=== PATIENT | male | born 1945 | race Caucasian/White ===

== ENCOUNTER 2017-01-02 22:51 | Emergency (ER) | payer OTHER ==
--- NOTE | 2017-01-03 02:16 | ED NURSING NOTES ---
Clinical Report - Nurses [facility] [address] [place] [address] 01/02/2017 22:52 Patient: TIERRA PEOPLES TRIAGE Triage time 23:06. Acuity: LEVEL 3. Chief Complaint: HEMATURIA. --23:12 Everton Jalloh R.N. 23:06 01/02/17. BP: 157/68. HR: 116. RR: 28 (regular and labored). O2 saturation: 88% on room air. Temp: 98.4 F (oral). Pain level now: 05/27. Additional comments: pt states having chronic shoulder pain. irregular rhythm on international marketing executive. --23:12 Everton Jalloh R.N. <<STRICKEN ENTRY-- 23:01/02/17. BP: 157/68. HR: 116. RR: 28 (regular and labored). O2 saturation: 88% on room air. Temp: 98.4 F (oral). Pain level now: 10. Additional comments: pt states having chronic shoulder pain. --23:12 Everton Jalloh R.N. --END STRIKE>> Change to Details. --02:05 Everton Jalloh R.N. Weight: 97.5 kg stated. Height/Length: 74 inches Per Patient. BMI: 27.6. --23:10 Everton Jalloh R.N. Medications Unable to Obtain. --23:07 Everton Jalloh R.N. PROzac Oral. --23:07 Everton Jalloh R.N. Allergies No Known Drug Allergy. --23:07 Everton Jalloh R.N. History Arrived by private vehicle. Historian: spouse and patient. Accompanied by spouse. This started yesterday. ( pt states that he had blood in his urine "last night. and it cleared up"). SOCIAL HX: Former smoker. No alcohol use or drug use. SELF HARM ASSESSMENT: A self harm assessment was performed. The patient answered "no" to the question "Have you noticed less interest or pleasure in doing things?" and "Do you have thoughts of harming or killing yourself?". NUTRITIONAL RISK ASSESSMENT: The nutritional risk assessment revealed no deficiencies. LEARNING NEEDS ASSESSMENT: The learning needs assessment revealed no barriers. FALL RISK ASSESSMENT: Fall risk assessment completed. Risk factors identified include patient impairment of cognition. --23:12 Everton Jalloh R.N. PROBLEMS: Emphysema. Leukemia. Dementia. UTI - Urinary Tract Infection. --23:09 Everton Jalloh R.N. ADDITIONAL SURGERIES: Appendectomy. Cataract Surgery. Shoulder Surgery. --23:09 Everton Jalloh R.N. Interventions ID band on patient. To treatment room. --23:12 Everton Jalloh R.N. PHYSICAL ASSESSMENT ( Patient placed on 4 L oxygen). GENERAL / NEURO / PSYCH: Alert. RESPIRATORY: Mild respiratory distress. Coarse crackles present diffusely in both lungs. CVS: Cardiac rhythm: (irregular rhythm). Capillary refill less than 2 seconds. GI / : Abdomen soft and nontender. SKIN: Skin is warm and dry. --23:16 Everton Jalloh R.N. Ambulatory to room. --23:16 Everton Jalloh R.N. <<STRICKEN ENTRY-- GENERAL / NEURO / PSYCH: The patient is disoriented to person, place, time and situation. --02:15 Everton Jalloh R.N. --END STRIKE>> Charted On Wrong Patient --02:15 Everton Jalloh R.N. GENERAL / NEURO / PSYCH: Oriented X 4. ( Oriented to time place, person, and situation). --02:15 Everton Jalloh R.N. NURSING PROGRESS NOTES Oxygen administered. unclaimed property manager, pulse oximeter and NIBP monitor placed on patient. Patient gowned. Head of bed elevated. Reassurance given. Two patient identifiers checked. Call light placed in reach. Side rails up x 1. Bed placed in lowest position. Brakes of bed on. Patient ready for evaluation- chart flagged. Patient waiting for evaluation. --23:17 Everton Jalloh R.N. ( of patient at bedside). --23:29 Everton Jalloh R.N. ( RT called and RT eval requested). --23:59 Everton Jalloh R.N. EKG time: (0003). EKG was ordered, performed by a tech and shown to the ED physician. --00:04 Eliu Davis, ER Financial Systems Manager 00:20 01/03/2017 Site #1 started via IV in the left forearm with an 20g angiocath, with aseptic technique and good blood return; one attempt. Blood drawn: rainbow set. Labeled in the presence of the patient and sent to the lab. Saline lock flushed with 10 mL saline. --00:28 Everton Jalloh R.N. 00:50 01/03/2017 SOLU-MEDROL (MethylPREDNISolone Sodium Succ) IVP 125 mg given over 2 minute(s) via site #1. Allergies verified and confirmed 5 rights. IV patency established. IV site checked: no pain, redness, or swelling. IV flushed thoroughly pre- and post-medication administration. IVP given by RN. --00:53 Everton Jalloh R.N. 00:51 01/03/17. Critical value relayed to ED by Christ. Critical value received by Carolynn. WBC: 28.7. ED physician notifed of critical value. No action is required. --00:51 Ashley Potts R.N. ( Patient's states that the patient does not use oxygen at home, and states that he uses a home nebulizer.). --01:27 Everton Jalloh R.N. ( The of the patient is in the room with the patient now. Patient states "I want to go home! I'm leaving right now" The of the patient is discussing it with him.). --01:44 Everton Jalloh R.N. ( Dr. Galvin notified of the patient's intentions.). --01:44 Everton Jalloh R.N. ( THe bathhouse attendant is ascertaining if the patient can be set up with home oxygen.). --01:45 Everton Jalloh R.N. ( The physician and the bathhouse attendant are in speaking with the patient and his together.). --01:53 Everton Jalloh R.N. 02:18 01/03/2017 Site #1 removed upon discharge. Manual pressure and bandage applied. --02:53 Everton Jalloh R.N. DISPOSITION / DISCHARGE 02:20. Departure time: 0220. Condition at departure: stable. No learning barriers present. Discharge instructions provided and reviewed with the patient. Reviewed warnings. Reviewed medication(s) side effects, precautions, dosing and course information. Prescription(s) given to the summer clerk. Treatments reviewed. Reviewed referrals for followup. Patient and spouse verbalized understanding. Written instructions provided in Sri Lankan. The patient was discharged home and accompanied by spouse. He left the Emergency Department ambulatory and via private vehicle. Patient driving. ( Spouse of patent ("Haley") states "He can drive."). --02:51 Everton Jalloh R.N. 02:20 01/03/17. BP: 157/91. HR: 102. RR: 28 (regular and labored). O2 saturation: 94% on nasal cannula at 2 liters/minute. --02:51 Everton Jalloh R.N. ( 0220: RT provided the patient with an oxygen tank and gave instructions on use. of patient and patient states understanding how to use home oxygen, and state that they will call [facility] in the morning to establish continued home oxygen service/use.). --02:52 Everton Jalloh R.N. Locked/Released at 01/03/2017 2:55 by Everton Jalloh R.N.
--- NOTE | 2017-01-03 02:16 | ED ORDER SUMMARY ---
..... Patient: TIERRA PEOPLES OrderSheet [facility] VisitID: [id number] [place] [address] 71y, M Registration Date/Time: 01/02/2017 ORDER SHEET Weight: 97.5 kg (stated) Allergies: No Known Drug Allergy GENERAL ORDERS: UA-Culture if indicated Urgent (23:16 01/02/2017 Gino ACOSTA) (Ack 23:22 CHategekimana) (23:29 DDavis R.N.) EKG - ER Stat (23:54 01/02/2017 DDavis R.N. per protocol) (0:04 Simona ER Dehydration Plant Operator) RT Evaluation Stat (00:00 01/03/2017 DDavis R.N. verbal order read back to Gino ACOSTA) (0:16 CHategekimana) Chest 1V Urgent (00:03 01/03/2017 Gino ACOSTA) (Ack 0:18 Brandiekimana) (0:20 Samson) Honing Machine Operator Semiautomatic (Continuous) (00:03 01/03/2017 Gino ACOSTA) (0:07 DDavis R.N.) CBC w Diff Urgent (00:03 01/03/2017 Gino ACOSTA) (Ack 0:17 Brandiekimana) (0:28 DDavis R.N.) CMP Urgent (00:03 01/03/2017 Gino ACOSTA) (Ack 0:17 Jethroimana) (0:28 DDavis R.N.) PT with INR Urgent (00:03 01/03/2017 Gino ACOSTA) (Ack 0:17 Brandiekimana) (0:28 DDavis R.N.) PTT Urgent (00:03 01/03/2017 Gino ACOSTA) (Ack 0:18 Jose Danielegekimana) (0:28 DDavis R.N.) Amylase Urgent (00:03 01/03/2017 Gino ACOSTA) (Ack 0:18 Jose Danielegekimana) (0:28 DDavis R.N.) Lipase Urgent (00:03 01/03/2017 Gino ACOSTA) (Ack 0:18 Jenny) (0:28 DDavis R.N.) BNP Urgent (00:03 01/03/2017 Gino ACOSTA) (Ack 0:18 Jenny) (0:28 DDavis R.N.) CPK Urgent (00:03 01/03/2017 Gino ACOSTA) (Ack 0:18 Jethroimana) (0:28 DDavis R.N.) Troponin-I Urgent (00:03 01/03/2017 Gino ACOSTA) (Ack 0:18 Jenny) (0:28 DDavis R.N.) D-Dimer Urgent (00:03 01/03/2017 Gino ACOSTA) (Ack 0:18 Jenny) (0:28 DDavis R.N.) Oxygen (2 L/min) (NC) (00:03 01/03/2017 Gino ACOSTA) (0:07 DDavis R.N.) Pulse oximeter (00:03 01/03/2017 Gino ACOSTA) (0:07 DDavis R.N.) EKG - ER Stat (00:03 01/03/2017 Gino ACOSTA) (Cancelled: Other0:05 Gino ACOSTA) UA-Culture if indicated Urgent (00:11 01/03/2017 DDavis R.N. verbal order read back to Gino ACOSTA) (0:11 DDavis R.N.) CBC w Manual Diff Urgent (00:56 01/03/2017 Gino ACOSTA) (Cancelled: Other0:58 CHaged ER Dehydration Plant Operator) (Ack 0:59 Brandiekimana) MEDICATION ORDERS: DuoNeb Neb Tx 1 unit dose (NOW) (00:45 01/03/2017 DDavis R.N. verbal order read back to Gino ACOSTA) (0:48 ASingh) IV FLUIDS: IV Saline Lock (00:03 01/03/2017 Gino ACOSTA) (0:28 DDavis R.N.) Solu-MEDROL IV 125 mg (NOW) (00:30 01/03/2017 Gino ACOSTA) (Ack 0:45 DDavis R.N.) (0:53 DDavis R.N.) ORDER SHEET NOTES: [Electronically signed by Everton Jalloh R.N. (02:55 01/03/2017)] [Electronically signed by Froilan Galvin MD (04:17 01/10/2017)] [Electronically locked/signed by Everton Jalloh R.N. (02:55 01/03/2017)]
--- NOTE | 2017-01-03 02:16 | ED CLINICAL REPORT ---
Clinical Report - Physicians/Mid Levels [facility] [address] [place] [address] 01/02/2017 22:52 Patient: TIERRA PEOPLES Time Seen: 23:01. Arrived- By private vehicle. Historian- patient. History limited by vague historian. HISTORY OF PRESENT ILLNESS Chief Complaint: HEMATURIA. This started last night. The problem is described as mild. Is now gone. It was abrupt in onset and has been intermittent. No penile discharge, discomfort with urination, testicular pain, urgency of urination or flank pain. Sexual history is noncontributory. REVIEW OF SYSTEMS No chills, fever, sweats, calf pain or chest pain. No palpitations. He has had moderate difficulty breathing (chronically, recently worse). It has been similar to previous symptoms. He has had moderate joint pain (chronically), involving the right shoulder. Has had similar previous symptoms of joint pain. All systems otherwise negative, except as recorded above. PAST HISTORY ( PCP - GOLD LEMON). Problems: Emphysema. Leukemia. Dementia. UTI - Urinary Tract Infection. Additional Surgeries: Appendectomy. Cataract Surgery. Shoulder Surgery. Medications: PROzac Oral. Unable to Obtain. Allergies: No Known Drug Allergy. SOCIAL HISTORY Former smoker. No alcohol use or drug use. FAMILY HISTORY Denies family medical history. ADDITIONAL NOTES The nursing notes have been reviewed. PHYSICAL EXAM Vital Signs: 01/02/2017 23:06 BP: 157/68. HR: 116. RR: 28. O2 saturation: 88%. Temp: 98.4 F. Pain level now: 9/10. Have been reviewed. Appearance: Alert. ENT: Pharynx normal. Neck: Neck supple. CVS: Heart sounds normal. Respiratory: No respiratory distress. Decreased air movement. Expiratory mild bilateral wheezes diffusely. Abdomen: Soft and nontender. Bowel sounds normal. No organomegaly. No mass. Back: No CVA tenderness. : Normal genitalia. Skin: Skin warm and dry. Normal skin color. Normal skin turgor. Extremities: Right shoulder. Limited ROM due to pain (diminished flexion and external rotation). Neurovascular intact distally. No erythema, tenderness or swelling. No lower extremity edema. LABS, X-RAYS, AND EKG EKG: Rate: 108. Ectopic beats (bigeminy). Premature atrial contractions. Left anterior fascicular block. RBBB. Changes present when compared to prior EKG. (10 Oct 2008). The study has been independently viewed by me. Chest X-ray: Vascular congestion present. Cardiomegaly. The X-rays were independently viewed by me. Laboratory Tests: UA-Culture if indicated: (SHANNON: 01/03/2017 00:04) ( MsgRcvd 01/03/2017 00:35) Final results Test Result Flag Units (Reference) URINE COLOR YELLOW URINE APPEARANCE SL CLOUDY URINE GLUCOSE NEGATIVE (NEGATIVE) URINE BILIRUBIN NEGATIVE (NEGATIVE) URINE KETONE TRACE (NEGATIVE) URINE SPECIFIC GRAVITY >= 1.030 (1.010-1.030) URINE PH 5.0 (5.0-8.0) URINE PROTEIN 2+ (NEGATIVE) URINE UROBILINOGEN 0.2 EU/dL (0.2-1.0) URINE NITRITE NEGATIVE (NEGATIVE) URINE BLOOD 2+ (NEGATIVE) URINE LEUK ESTERASE NEGATIVE (NEGATIVE) URINE RBC 0-1 rbc/hpf (0-1) URINE WBC 1-3 wbc/hpf (0-1) URINE EPITHELIAL CELLS 0-1 EPI/hpf (0-5) URINE BACTERIA NONE SEEN (NONE SEEN) URINE COMMENT CULT NOT INDICATED 3-5 Granular Casts/l.p.f.1+ AMORPHOUS3 m.l. patient sample submittedURINE CULTURES ARE SET-UP BASED ON THE FOLLOWING CRITERIA:POSITIVE NITRITEPOSITIVE LEUKOCYTE ESTERASEGREATER THAN 10 WHITE BLOOD CELLSMODERATE (2+) OR GREATER BACTERIA CBC w Diff: (SHANNON: 01/03/2017 00:20) ( MsgRcvd 01/03/2017 00:53) IP Test Result Flag Units (Reference) WHITE BLOOD COUNT 28.7 *H K/uL (4.5-11.5) CRITICAL RESULTS CALLEDCalled to Supriya JEAN 01/03/17 0051Were 2 patient identifiers used? YWas the result read back? Y RED BLOOD COUNT 4.45 L M/uL (4.50-5.90) HEMOGLOBIN 12.3 L gm/dL (13.5-17.5) HEMATOCRIT 37.5 L % (41.0-53.0) MEAN CELL VOLUME 84 fL (80-100) MEAN CORPUSCULAR HGB 28 pg (26-34) MEAN CORPUSCULAR HGB CONC 33 g/dL (31-37) RED CELL DISTRIBUTION WIDTH 15.8 H % (11.6-14.8) PLATELET COUNT 258 K/uL (150-400) PT with INR: (SHANNON: 01/03/2017 00:20) ( [facility] 01/03/2017 01:01) Final results Test Result Flag Units (Reference) INR 1.0 (0.8-1.2) Low Intensity Therapy: INR 1.5-2.0 PT range 18.5-23.1Mod.Intensity Therapy: INR 2.0-3.0 PT range 23.1-31.5High Intensity Therapy: INR 2.5-3.5 PT range 27.4-35.5High Intensity Therapy 2: INR 3.0-4.0 PT range 31.5-39.3 APTT 27 SECONDS (24-34) D-DIMER QUANTITATIVE 0.39 ug/mLFEU (0.27-0.52) The primary value of this quantitative assay relates toits negative predictive value (i.e. exclusion) of pulmonaryembolism/deep vein thrombosis/DIC.Elevated levels of d-dimer may also occur with:, age, cancer, inflammation, liver disease,post-op, infection, hematoma, coronary disease, peripheralarteriopathy, bleeding disorders and thrombolytic treatment.Results should be correlated with other clinical andradiological data.Testing Methodology: Latex Immunoassay BNP: (SHANNON: 01/03/2017 00:20) ( [facility] [place] 01/03/2017 01:14) Final results Test Result Flag Units (Reference) B-TYPE NATRIURETIC PEPTIDE 19.3 pg/ml (5-100) CMP: (SHANNON: 01/03/2017 00:20) ( Mscvd 01/03/2017 01:04) Final results Test Result Flag Units (Reference) GLUCOSE 158 H mg/dL (70-110) BUN 38 H mg/dL (7-18) CREATININE 3.2 H mg/dL (0.6-1.3) Estimated GFR 20.51 mL/min Estimated GFR- 24.86 mL/min Note: Persistent reduction over 3 months in eGFR<60 mL/min/1.73 m2 defines CKD. Patients with eGFR values>=60 mL/min/1.73 m2 may also have CKD if evidence ofpersistent proteinuria. Additional information may be foundat www.kidney.org. SODIUM 138 mmol/L (136-145) POTASSIUM 3.3 L mmol/L (3.5-5.1) CHLORIDE 101 mmol/L (98-107) CARBON DIOXIDE 30 mmol/L (21-32) CALCIUM 9.0 mg/dL (8.5-10.1) TOTAL PROTEIN 9.3 H g/dL (6.4-8.2) ALBUMIN 3.5 g/dL (3.3-5.0) BILIRUBIN, TOTAL 0.4 mg/dL (0.0-1.0) ALKALINE PHOSPHATASE 138 H U/L (46-116) AST (SGOT) 30 U/L (15-37) ALT (SGPT) 33 U/L (12-78) LIPASE 202 U/L (73-393) AMYLASE 163 H U/L (25-115) CPK 237 U/L (24-260) TROPONIN I 0.08 ng/mL (0.00-1.5) TROPONIN REFERENCE RANGE:<0.1 NEGATIVE0.1-1.5 INDETERMINANT>1.5 POSITIVE UA-Culture if indicated: (SHANNON: 01/02/2017 23:20) ( MsgRcvd 01/02/2017 23:53) Final results Test Result Flag Units (Reference) URINE COLOR YELLOW URINE APPEARANCE CLOUDY URINE GLUCOSE NEGATIVE (NEGATIVE) URINE BILIRUBIN NEGATIVE (NEGATIVE) URINE KETONE TRACE (NEGATIVE) URINE SPECIFIC GRAVITY >= 1.030 (1.010-1.030) URINE PH 5.0 (5.0-8.0) URINE PROTEIN 2+ (NEGATIVE) URINE UROBILINOGEN 0.2 EU/dL (0.2-1.0) URINE NITRITE NEGATIVE (NEGATIVE) URINE BLOOD 3+ (NEGATIVE) URINE LEUK ESTERASE NEGATIVE (NEGATIVE) URINE RBC 0-1 rbc/hpf (0-1) URINE MICROSCOPIC WAS PERFORMED ON UNCONCENTRATED SAMPLEINTERPRET RESULTS WITH CAUTION.GRANULAR CAST= 5-10/LPF URINE WBC 3-5 wbc/hpf (0-1) URINE EPITHELIAL CELLS 1-3 EPI/hpf (0-5) URINE BACTERIA FEW (1+) (NONE SEEN) URINE COMMENT CULT NOT INDICATED URINE CULTURES ARE SET-UP BASED ON THE FOLLOWING CRITERIA:POSITIVE NITRITEPOSITIVE LEUKOCYTE ESTERASEGREATER THAN 10 WHITE BLOOD CELLSMODERATE (2+) OR GREATER BACTERIA . PROGRESS AND PROCEDURES Course of Care: Patient is stable. Patient/family counseled. Old medical records reviewed. Disposition: Discharged. Condition: stable. CLINICAL IMPRESSION Leukemia. Hematuria Chronic upper extremity pain involving the right shoulder. Acute exacerbation of COPD (emphysematous) Hypoxia. INSTRUCTIONS No driving or operating machinery while taking medication. (please call [facility] when you get home at: [phone] they will come to your home to continue the arrangements for your home oxygen set up as discussed. Continue the use of your home nebulizer and inhalers as discussed). Warnings: Further evaluation is necessary. GENERAL WARNINGS: Return or contact your physician immediately if your condition worsens or changes unexpectedly, if not improving as expected, or if other problems arise. Prescription Medications: Ultram 50 mg: take 1-2 orally every 6 hours as needed for pain. Dispense ten (10). No refills. Substitution is permissible. Follow-up: Follow up with your doctor GOLD LEMON tomorrow. Call for an appointment. Follow up with a urologist Dr. Jose Estrada 's phone number is: [phone]. his address is: [address] [place] [address] in five days. Call for the next available appointment. Understanding of the discharge instructions verbalized by patient. (Electronically signed by Froilan Galvin MD 01/10/2017 4:17)
--- NOTE | 2017-01-03 02:16 | ED NURSING NOTES ---
Clinical Report - Nurses [facility] [address] [place] [address] 01/02/2017 22:52 Patient: TIERRA PEOPLES TRIAGE Triage time 23:06. Acuity: LEVEL 3. Chief Complaint: HEMATURIA. --23:12 Everton Jalloh R.N. 23:06 01/02/17. BP: 157/68. HR: 116. RR: 28 (regular and labored). O2 saturation: 88% on room air. Temp: 98.4 F (oral). Pain level now: 05/27. Additional comments: pt states having chronic shoulder pain. irregular rhythm on monitoring engineer. --23:12 Everton Jalloh R.N. <<STRICKEN ENTRY-- 23:01/02/17. BP: 157/68. HR: 116. RR: 28 (regular and labored). O2 saturation: 88% on room air. Temp: 98.4 F (oral). Pain level now: 10. Additional comments: pt states having chronic shoulder pain. --23:12 Everton Jalloh R.N. --END STRIKE>> Change to Details. --02:05 Everton Jalloh R.N. Weight: 97.5 kg stated. Height/Length: 74 inches Per Patient. BMI: 27.6. --23:10 Everton Jalloh R.N. Medications Unable to Obtain. --23:07 Everton Jalloh R.N. PROzac Oral. --23:07 Everton Jalloh R.N. Allergies No Known Drug Allergy. --23:07 Everton Jalloh R.N. History Arrived by private vehicle. Historian: spouse and patient. Accompanied by spouse. This started yesterday. ( pt states that he had blood in his urine "last night. and it cleared up"). SOCIAL HX: Former smoker. No alcohol use or drug use. SELF HARM ASSESSMENT: A self harm assessment was performed. The patient answered "no" to the question "Have you noticed less interest or pleasure in doing things?" and "Do you have thoughts of harming or killing yourself?". NUTRITIONAL RISK ASSESSMENT: The nutritional risk assessment revealed no deficiencies. LEARNING NEEDS ASSESSMENT: The learning needs assessment revealed no barriers. FALL RISK ASSESSMENT: Fall risk assessment completed. Risk factors identified include patient impairment of cognition. --23:12 Everton Jalloh R.N. PROBLEMS: Emphysema. Leukemia. Dementia. UTI - Urinary Tract Infection. --23:09 Everton Jalloh R.N. ADDITIONAL SURGERIES: Appendectomy. Cataract Surgery. Shoulder Surgery. --23:09 Everton Jalloh R.N. Interventions ID band on patient. To treatment room. --23:12 Everton Jalloh R.N. PHYSICAL ASSESSMENT ( Patient placed on 4 L oxygen). GENERAL / NEURO / PSYCH: Alert. RESPIRATORY: Mild respiratory distress. Coarse crackles present diffusely in both lungs. CVS: Cardiac rhythm: (irregular rhythm). Capillary refill less than 2 seconds. GI / : Abdomen soft and nontender. SKIN: Skin is warm and dry. --23:16 Everton Jalloh R.N. Ambulatory to room. --23:16 Everton Jalloh R.N. <<STRICKEN ENTRY-- GENERAL / NEURO / PSYCH: The patient is disoriented to person, place, time and situation. --02:15 Everton Jalloh R.N. --END STRIKE>> Charted On Wrong Patient --02:15 Everton Jalloh R.N. GENERAL / NEURO / PSYCH: Oriented X 4. ( Oriented to time place, person, and situation). --02:15 Everton Jalloh R.N. NURSING PROGRESS NOTES Oxygen administered. lunchroom monitor, pulse oximeter and NIBP monitor placed on patient. Patient gowned. Head of bed elevated. Reassurance given. Two patient identifiers checked. Call light placed in reach. Side rails up x 1. Bed placed in lowest position. Brakes of bed on. Patient ready for evaluation- chart flagged. Patient waiting for evaluation. --23:17 Everton Jalloh R.N. ( of patient at bedside). --23:29 Everton Jalloh R.N. ( RT called and RT eval requested). --23:59 Everton Jalloh R.N. EKG time: (0003). EKG was ordered, performed by a tech and shown to the ED physician. --00:04 Eliu Davis, ER Hospice Clinical Marketer 00:20 01/03/2017 Site #1 started via IV in the left forearm with an 20g angiocath, with aseptic technique and good blood return; one attempt. Blood drawn: rainbow set. Labeled in the presence of the patient and sent to the lab. Saline lock flushed with 10 mL saline. --00:28 Everton Jalloh R.N. 00:50 01/03/2017 SOLU-MEDROL (MethylPREDNISolone Sodium Succ) IVP 125 mg given over 2 minute(s) via site #1. Allergies verified and confirmed 5 rights. IV patency established. IV site checked: no pain, redness, or swelling. IV flushed thoroughly pre- and post-medication administration. IVP given by RN. --00:53 Everton Jalloh R.N. 00:51 01/03/17. Critical value relayed to ED by Christ. Critical value received by Carolynn. WBC: 28.7. ED physician notifed of critical value. No action is required. --00:51 Ashley Potts R.N. ( Patient's states that the patient does not use oxygen at home, and states that he uses a home nebulizer.). --01:27 Everton Jalloh R.N. ( The of the patient is in the room with the patient now. Patient states "I want to go home! I'm leaving right now" The of the patient is discussing it with him.). --01:44 Everton Jalloh R.N. ( Dr. Galvin notified of the patient's intentions.). --01:44 Everton Jalloh R.N. ( THe housekeeping/laundry is ascertaining if the patient can be set up with home oxygen.). --01:45 Everton Jalloh R.N. ( The physician and the housekeeping/laundry are in speaking with the patient and his together.). --01:53 Everton Jalloh R.N. 02:18 01/03/2017 Site #1 removed upon discharge. Manual pressure and bandage applied. --02:53 Everton Jalloh R.N. DISPOSITION / DISCHARGE 02:20. Departure time: 0220. Condition at departure: stable. No learning barriers present. Discharge instructions provided and reviewed with the patient. Reviewed warnings. Reviewed medication(s) side effects, precautions, dosing and course information. Prescription(s) given to the associate justice. Treatments reviewed. Reviewed referrals for followup. Patient and spouse verbalized understanding. Written instructions provided in Bulgarian. The patient was discharged home and accompanied by spouse. He left the Emergency Department ambulatory and via private vehicle. Patient driving. ( Spouse of patent ("Haley") states "He can drive."). --02:51 Everton Jalloh R.N. 02:20 01/03/17. BP: 157/91. HR: 102. RR: 28 (regular and labored). O2 saturation: 94% on nasal cannula at 2 liters/minute. --02:51 Everotn Jalloh R.N. ( 0220: RT provided the patient with an oxygen tank and gave instructions on use. of patient and patient states understanding how to use home oxygen, and state that they will call [facility] in the morning to establish continued home oxygen service/use.). --02:52 Everton Jalloh R.N. Locked/Released at 01/03/2017 2:55 by Everton Jalloh R.N.
--- NOTE | 2017-01-03 02:16 | ED ORDER SUMMARY ---
..... Patient: TIERRA PEOPLES OrderSheet [facility] VisitID: [id number] [place] [address] 71y, M Registration Date/Time: 01/02/2017 ORDER SHEET Weight: 97.5 kg (stated) Allergies: No Known Drug Allergy GENERAL ORDERS: UA-Culture if indicated Urgent (23:16 01/02/2017 Gino ACOSTA) (Ack 23:22 CHategekimana) (23:29 DDavis R.N.) EKG - ER Stat (23:54 01/02/2017 DDavis R.N. per protocol) (0:04 Simona ER Music Researcher) RT Evaluation Stat (00:00 01/03/2017 DDavis R.N. verbal order read back to Gino ACOSTA) (0:16 CHategekimana) Chest 1V Urgent (00:03 01/03/2017 Gino ACOSTA) (Ack 0:18 Brandiekimana) (0:20 Samson) Hand Alterations Tailor (Continuous) (00:03 01/03/2017 Gino ACOSTA) (0:07 DDavis R.N.) CBC w Diff Urgent (00:03 01/03/2017 Gino ACOSTA) (Ack 0:17 Brandiekimana) (0:28 DDavis R.N.) CMP Urgent (00:03 01/03/2017 Gino ACOSTA) (Ack 0:17 Jethroimana) (0:28 DDavis R.N.) PT with INR Urgent (00:03 01/03/2017 Gino ACOSTA) (Ack 0:17 Brandiekimana) (0:28 DDavis R.N.) PTT Urgent (00:03 01/03/2017 Gino ACOSTA) (Ack 0:18 Jose Danielegekimana) (0:28 DDavis R.N.) Amylase Urgent (00:03 01/03/2017 Gino ACOSTA) (Ack 0:18 Jose Danielegekimana) (0:28 DDavis R.N.) Lipase Urgent (00:03 01/03/2017 Gino ACOSTA) (Ack 0:18 Jenny) (0:28 DDavis R.N.) BNP Urgent (00:03 01/03/2017 Gino ACOSTA) (Ack 0:18 Jenny) (0:28 DDavis R.N.) CPK Urgent (00:03 01/03/2017 Gino ACOSTA) (Ack 0:18 Jethroimana) (0:28 DDavis R.N.) Troponin-I Urgent (00:03 01/03/2017 Gino ACOSTA) (Ack 0:18 Jenny) (0:28 DDavis R.N.) D-Dimer Urgent (00:03 01/03/2017 Gino ACOSTA) (Ack 0:18 Jenny) (0:28 DDavis R.N.) Oxygen (2 L/min) (NC) (00:03 01/03/2017 Gino ACOSTA) (0:07 DDavis R.N.) Pulse oximeter (00:03 01/03/2017 Gino ACOSTA) (0:07 DDavis R.N.) EKG - ER Stat (00:03 01/03/2017 Gino ACOSTA) (Cancelled: Other0:05 Gino ACOSTA) UA-Culture if indicated Urgent (00:11 01/03/2017 DDavis R.N. verbal order read back to Gino ACOSTA) (0:11 DDavis R.N.) CBC w Manual Diff Urgent (00:56 01/03/2017 Gino ACOSTA) (Cancelled: Other0:58 CHaged ER Music Researcher) (Ack 0:59 Brandiekimana) MEDICATION ORDERS: DuoNeb Neb Tx 1 unit dose (NOW) (00:45 01/03/2017 DDavis R.N. verbal order read back to Gino ACOSTA) (0:48 ASingh) IV FLUIDS: IV Saline Lock (00:03 01/03/2017 Gino ACOSTA) (0:28 DDavis R.N.) Solu-MEDROL IV 125 mg (NOW) (00:30 01/03/2017 Gino ACOSTA) (Ack 0:45 DDavis R.N.) (0:53 DDavis R.N.) ORDER SHEET NOTES: [Electronically signed by Everton Jalloh R.N. (02:55 01/03/2017)] [Electronically signed by Froilan Galvin MD (04:17 01/10/2017)] [Electronically locked/signed by Everton Jalloh R.N. (02:55 01/03/2017)]
--- NOTE | 2017-01-03 02:16 | ED CLINICAL REPORT ---
Clinical Report - Physicians/Mid Levels [facility] [address] [place] [address] 01/02/2017 22:52 Patient: TIERRA PEOPLES Time Seen: 23:01. Arrived- By private vehicle. Historian- patient. History limited by vague historian. HISTORY OF PRESENT ILLNESS Chief Complaint: HEMATURIA. This started last night. The problem is described as mild. Is now gone. It was abrupt in onset and has been intermittent. No penile discharge, discomfort with urination, testicular pain, urgency of urination or flank pain. Sexual history is noncontributory. REVIEW OF SYSTEMS No chills, fever, sweats, calf pain or chest pain. No palpitations. He has had moderate difficulty breathing (chronically, recently worse). It has been similar to previous symptoms. He has had moderate joint pain (chronically), involving the right shoulder. Has had similar previous symptoms of joint pain. All systems otherwise negative, except as recorded above. PAST HISTORY ( PCP - GOLD LEMON). Problems: Emphysema. Leukemia. Dementia. UTI - Urinary Tract Infection. Additional Surgeries: Appendectomy. Cataract Surgery. Shoulder Surgery. Medications: PROzac Oral. Unable to Obtain. Allergies: No Known Drug Allergy. SOCIAL HISTORY Former smoker. No alcohol use or drug use. FAMILY HISTORY Denies family medical history. ADDITIONAL NOTES The nursing notes have been reviewed. PHYSICAL EXAM Vital Signs: 01/02/2017 23:06 BP: 157/68. HR: 116. RR: 28. O2 saturation: 88%. Temp: 98.4 F. Pain level now: 9/10. Have been reviewed. Appearance: Alert. ENT: Pharynx normal. Neck: Neck supple. CVS: Heart sounds normal. Respiratory: No respiratory distress. Decreased air movement. Expiratory mild bilateral wheezes diffusely. Abdomen: Soft and nontender. Bowel sounds normal. No organomegaly. No mass. Back: No CVA tenderness. : Normal genitalia. Skin: Skin warm and dry. Normal skin color. Normal skin turgor. Extremities: Right shoulder. Limited ROM due to pain (diminished flexion and external rotation). Neurovascular intact distally. No erythema, tenderness or swelling. No lower extremity edema. LABS, X-RAYS, AND EKG EKG: Rate: 108. Ectopic beats (bigeminy). Premature atrial contractions. Left anterior fascicular block. RBBB. Changes present when compared to prior EKG. (10 Oct 2008). The study has been independently viewed by me. Chest X-ray: Vascular congestion present. Cardiomegaly. The X-rays were independently viewed by me. Laboratory Tests: UA-Culture if indicated: (SHANNON: 01/03/2017 00:04) ( MsgRcvd 01/03/2017 00:35) Final results Test Result Flag Units (Reference) URINE COLOR YELLOW URINE APPEARANCE SL CLOUDY URINE GLUCOSE NEGATIVE (NEGATIVE) URINE BILIRUBIN NEGATIVE (NEGATIVE) URINE KETONE TRACE (NEGATIVE) URINE SPECIFIC GRAVITY >= 1.030 (1.010-1.030) URINE PH 5.0 (5.0-8.0) URINE PROTEIN 2+ (NEGATIVE) URINE UROBILINOGEN 0.2 EU/dL (0.2-1.0) URINE NITRITE NEGATIVE (NEGATIVE) URINE BLOOD 2+ (NEGATIVE) URINE LEUK ESTERASE NEGATIVE (NEGATIVE) URINE RBC 0-1 rbc/hpf (0-1) URINE WBC 1-3 wbc/hpf (0-1) URINE EPITHELIAL CELLS 0-1 EPI/hpf (0-5) URINE BACTERIA NONE SEEN (NONE SEEN) URINE COMMENT CULT NOT INDICATED 3-5 Granular Casts/l.p.f.1+ AMORPHOUS3 m.l. patient sample submittedURINE CULTURES ARE SET-UP BASED ON THE FOLLOWING CRITERIA:POSITIVE NITRITEPOSITIVE LEUKOCYTE ESTERASEGREATER THAN 10 WHITE BLOOD CELLSMODERATE (2+) OR GREATER BACTERIA CBC w Diff: (SHANNON: 01/03/2017 00:20) ( MsgRcvd 01/03/2017 00:53) IP Test Result Flag Units (Reference) WHITE BLOOD COUNT 28.7 *H K/uL (4.5-11.5) CRITICAL RESULTS CALLEDCalled to Supriya JEAN 01/03/17 0051Were 2 patient identifiers used? YWas the result read back? Y RED BLOOD COUNT 4.45 L M/uL (4.50-5.90) HEMOGLOBIN 12.3 L gm/dL (13.5-17.5) HEMATOCRIT 37.5 L % (41.0-53.0) MEAN CELL VOLUME 84 fL (80-100) MEAN CORPUSCULAR HGB 28 pg (26-34) MEAN CORPUSCULAR HGB CONC 33 g/dL (31-37) RED CELL DISTRIBUTION WIDTH 15.8 H % (11.6-14.8) PLATELET COUNT 258 K/uL (150-400) PT with INR: (SHANNON: 01/03/2017 00:20) ( [facility] [place] 01/03/[place] 01:01) Final results Test Result Flag Units (Reference) INR 1.0 (0.8-1.2) Low Intensity Therapy: INR 1.5-2.0 PT range 18.5-23.1Mod.Intensity Therapy: INR 2.0-3.0 PT range 23.1-31.5High Intensity Therapy: INR 2.5-3.5 PT range 27.4-35.5High Intensity Therapy 2: INR 3.0-4.0 PT range 31.5-39.3 APTT 27 SECONDS (24-34) D-DIMER QUANTITATIVE 0.39 ug/mLFEU (0.27-0.52) The primary value of this quantitative assay relates toits negative predictive value (i.e. exclusion) of pulmonaryembolism/deep vein thrombosis/DIC.Elevated levels of d-dimer may also occur with:, age, cancer, inflammation, liver disease,post-op, infection, hematoma, coronary disease, peripheralarteriopathy, bleeding disorders and thrombolytic treatment.Results should be correlated with other clinical andradiological data.Testing Methodology: Latex Immunoassay BNP: (SHANNON: 01/03/2017 00:20) ( [facility] [place] 01/03/2017 01:14) Final results Test Result Flag Units (Reference) B-TYPE NATRIURETIC PEPTIDE 19.3 pg/ml (5-100) CMP: (SHANNON: 01/03/2017 00:20) ( [facility] 01/03/2017 01:04) Final results Test Result Flag Units (Reference) GLUCOSE 158 H mg/dL (70-110) BUN 38 H mg/dL (7-18) CREATININE 3.2 H mg/dL (0.6-1.3) Estimated GFR 20.51 mL/min Estimated GFR- 24.86 mL/min Note: Persistent reduction over 3 months in eGFR<60 mL/min/1.73 m2 defines CKD. Patients with eGFR values>=60 mL/min/1.73 m2 may also have CKD if evidence ofpersistent proteinuria. Additional information may be foundat www.kidney.org. SODIUM 138 mmol/L (136-145) POTASSIUM 3.3 L mmol/L (3.5-5.1) CHLORIDE 101 mmol/L (98-107) CARBON DIOXIDE 30 mmol/L (21-32) CALCIUM 9.0 mg/dL (8.5-10.1) TOTAL PROTEIN 9.3 H g/dL (6.4-8.2) ALBUMIN 3.5 g/dL (3.3-5.0) BILIRUBIN, TOTAL 0.4 mg/dL (0.0-1.0) ALKALINE PHOSPHATASE 138 H U/L (46-116) AST (SGOT) 30 U/L (15-37) ALT (SGPT) 33 U/L (12-78) LIPASE 202 U/L (73-393) AMYLASE 163 H U/L (25-115) CPK 237 U/L (24-260) TROPONIN I 0.08 ng/mL (0.00-1.5) TROPONIN REFERENCE RANGE:<0.1 NEGATIVE0.1-1.5 INDETERMINANT>1.5 POSITIVE UA-Culture if indicated: (SHANNON: 01/02/2017 23:20) ( MsgRcvd 01/02/2017 23:53) Final results Test Result Flag Units (Reference) URINE COLOR YELLOW URINE APPEARANCE CLOUDY URINE GLUCOSE NEGATIVE (NEGATIVE) URINE BILIRUBIN NEGATIVE (NEGATIVE) URINE KETONE TRACE (NEGATIVE) URINE SPECIFIC GRAVITY >= 1.030 (1.010-1.030) URINE PH 5.0 (5.0-8.0) URINE PROTEIN 2+ (NEGATIVE) URINE UROBILINOGEN 0.2 EU/dL (0.2-1.0) URINE NITRITE NEGATIVE (NEGATIVE) URINE BLOOD 3+ (NEGATIVE) URINE LEUK ESTERASE NEGATIVE (NEGATIVE) URINE RBC 0-1 rbc/hpf (0-1) URINE MICROSCOPIC WAS PERFORMED ON UNCONCENTRATED SAMPLEINTERPRET RESULTS WITH CAUTION.GRANULAR CAST= 5-10/LPF URINE WBC 3-5 wbc/hpf (0-1) URINE EPITHELIAL CELLS 1-3 EPI/hpf (0-5) URINE BACTERIA FEW (1+) (NONE SEEN) URINE COMMENT CULT NOT INDICATED URINE CULTURES ARE SET-UP BASED ON THE FOLLOWING CRITERIA:POSITIVE NITRITEPOSITIVE LEUKOCYTE ESTERASEGREATER THAN 10 WHITE BLOOD CELLSMODERATE (2+) OR GREATER BACTERIA . PROGRESS AND PROCEDURES Course of Care: Patient is stable. Patient/family counseled. Old medical records reviewed. Disposition: Discharged. Condition: stable. CLINICAL IMPRESSION Leukemia. Hematuria Chronic upper extremity pain involving the right shoulder. Acute exacerbation of COPD (emphysematous) Hypoxia. INSTRUCTIONS No driving or operating machinery while taking medication. (please call [facility] when you get home at: [phone] they will come to your home to continue the arrangements for your home oxygen set up as discussed. Continue the use of your home nebulizer and inhalers as discussed). Warnings: Further evaluation is necessary. GENERAL WARNINGS: Return or contact your physician immediately if your condition worsens or changes unexpectedly, if not improving as expected, or if other problems arise. Prescription Medications: Ultram 50 mg: take 1-2 orally every 6 hours as needed for pain. Dispense ten (10). No refills. Substitution is permissible. Follow-up: Follow up with your doctor GOLD LEMON tomorrow. Call for an appointment. Follow up with a urologist Dr. Jose Estrada 's phone number is: [phone]. his address is: [address] [place] [address] in five days. Call for the next available appointment. Understanding of the discharge instructions verbalized by patient. (Electronically signed by Froilan Galvin MD 01/10/2017 4:17)
--- NOTE | 2017-01-03 07:49 | DIAGNOSTIC IMAGING REPORT ---
PROCEDURE: XR CHEST 1 VIEW INDICATION: HYPOXIA TECHNIQUE: Single view chest. 0014 hours COMPARISON: None FINDINGS: Mild cardiomegaly. Normal aortic contour. No central venous congestion. Mildly hyperinflated lungs with upper lobe lucency bilaterally. No pneumothorax. Intact osseous structures. IMPRESSION: 1. Mild COPD. 2. Mild cardiomegaly without CHF.
--- NOTE | 2017-01-10 04:18 | ED MAR SUMMARY ---
..... Medication Administration Record [facility] [address] [place] [address] Patient: TIERRA PEOPLES Visit ID: [id number] 71y, M Weight: 97.5 kg Height/Length: 74 in BMI: 27.6 ALLERGIES: No Known Drug Allergy Given 00:33 01/03/2017 Ariel Ahmadi, Medication Administered: DUONEB [NEB TX] (IPRATROPIUM-ALBUTEROL), Dose: 1 unit dose Nebulizer Neb TX. Medication Ordered: DuoNeb Neb Tx 1 unit dose (NOW). Given 00:50 01/03/2017 Everton Jalloh R.N. Medication Administered: SOLU-MEDROL [IVP] (METHYLPREDNISOLONE SODIUM SUCC), Dose: 125 mg IVP over 2 minute(s), Site: #1 left forearm. Medication Ordered: Solu-MEDROL IV 125 mg (NOW).
--- NOTE | 2017-01-10 04:18 | ED MED RECONCILIATION SUMMARY ---
Patient: TIERRA PEOPLES Medication Reconciliation Report [facility] VisitID: [id number] [address] [place] [address] 71y, M Registration Date/Time: 01/02/2017 Weight: 97.5 kg Height/Length: 74 in. BMI: 27.6 ALLERGIES: No Known Drug Allergy The patient's Home Medications are listed below: THE FOLLOWING MEDICATIONS NEED TO BE RECONCILED: PROzac Oral The source(s) of the original Home Medication information: Not obtained. The following Medications were given to the patient in the Emergency Department: Duoneb [Neb Tx] Neb TX 1 unit dose, administered: 01/03/2017 12:33:00 AM SOLU-MEDROL [IVP] IVP 125 mg, administered: 01/03/2017 12:50:00 AM The following Medications were prescribed to the patient: Ultram 50 mg: take 1-2 orally every 6 hours as needed for pain. Dispense ten (10). No refills. Substitution is permissible. -- Froilan Galvin MD
--- NOTE | 2017-01-10 04:18 | ED MAR SUMMARY ---
..... Medication Administration Record [facility] [address] [place] [address] Patient: TIERRA PEOPLES Visit ID: [id number] 71y, M Weight: 97.5 kg Height/Length: 74 in BMI: 27.6 ALLERGIES: No Known Drug Allergy Given 00:33 01/03/2017 Ariel Ahmadi, Medication Administered: DUONEB [NEB TX] (IPRATROPIUM-ALBUTEROL), Dose: 1 unit dose Nebulizer Neb TX. Medication Ordered: DuoNeb Neb Tx 1 unit dose (NOW). Given 00:50 01/03/2017 Everton Jalloh R.N. Medication Administered: SOLU-MEDROL [IVP] (METHYLPREDNISOLONE SODIUM SUCC), Dose: 125 mg IVP over 2 minute(s), Site: #1 left forearm. Medication Ordered: Solu-MEDROL IV 125 mg (NOW).
--- NOTE | 2017-01-10 04:18 | ED DISCHARGE INSTRUCTIONS ---
Patient: TIERRA PEOPLES General Instructions [facility] VisitID: [id number] [place] [address] 71y, M Registration Date/Time: 01/02/2017 Leukemia. Hematuria Chronic upper extremity pain involving the right shoulder. Acute exacerbation of COPD (emphysematous) Hypoxia. INSTRUCTIONS No driving or operating machinery while taking medication. (please call [facility] when you get home at: [phone] they will come to your home to continue the arrangements for your home oxygen set up as discussed. Continue the use of your home nebulizer and inhalers as discussed). Warnings: Further evaluation is necessary. GENERAL WARNINGS: Return or contact your physician immediately if your condition worsens or changes unexpectedly, if not improving as expected, or if other problems arise. Prescription Medications: Ultram 50 mg: take 1-2 orally every 6 hours as needed for pain. Dispense ten (10). No refills. Substitution is permissible. Follow-up: Follow up with your doctor [facility] tomorrow. Call for an appointment. Follow up with a urologist Dr. Jose Estrada 's phone number is: [phone]. his address is: [address] [place] [phone] in five days. Call for the next available appointment. Understanding of the discharge instructions verbalized by patient. ADDITIONAL INFORMATION COPD Flare Both emphysema and chronic bronchitis are forms of chronic obstructive pulmonary disease (COPD). It is most often caused by many years of smoking tobacco. Many things can make your lung disease suddenly get worse. These causes include the common cold, pneumonia, acute bronchitis, missing doses of your regular breathing medicines, or being around smoke, dust, or other air pollutants. A COPD flare may last 7 to 14 days. Your doctor may prescribe medicineto relax your airways and prevent wheezing. Your doctor may also prescribe antibiotics if he or she thinks you havea bacterial infection. Prednisone can helpease inflammation in a severe attack. Home care Here are things you can do at home: Drink lots of water or other fluids (at least 10 glasses a day) during an attack. This will loosen lung secretions and make it easier to breathe. If you have heart or kidney disease, check with your doctor before you drink extra amounts of fluids. Take prescribed medicine exactly at the times advised. If you have a hand-held inhaler or aerosol breathing medicine, don't use it more than once every 4 hours, unless your doctor tells you to. If you were givenan antibiotic or prednisone, take all of the medicine even if you are feeling better after a few days. Don't smoke. Avoid being aroundthe smoke of others. If you were given an inhaler, use it exactly as directed. If you need to use it more often than prescribed, your condition may be getting worse. Call your doctor. Follow-up care Follow up with your health care provider.If you are 65 or older or have chronic asthma or COPD, you should get a single dose of the pneumococcal vaccine and aflu shot each year. You may need a second dose of the pneumococcal vaccine if you had the first dose at a younger age. Your health care provider will let you know if you need a second dose. For all other people, the usual dose for the pneumococcal vaccine is 1 or 2 shots. Yourprovider can discuss this with you. When to seek medical care Get prompt medical attention ifany of these occur: Increased wheezing or shortness of breath Need to use your inhalers more often than usual without relief Fever of 100.4F(38C) or higher, or as directed by your health care provider Coughing up lots of dark-colored or bloody sputum (mucus) Chest pain with each breath You do not start to improve within 24 hours Blood In The Urine Blood in the urine ("hematuria") has many possible causes. If it occurs after an injury (such as a car accident or fall), it is most often a sign of bruising to the kidney or bladder. Common medical causes of blood in the urine include urinary tract infection, kidney stone, inflammation, tumors, or certain other diseases of the kidney or bladder. Menstruation can cause blood to appear in the urine sample, although it is not coming from the urinary tract. If only a trace amount of blood is present, it will show up on the urine test, even though the urine may be yellow and not pink or red. This may occur with any of the above conditions, as well as heavy exercise or high fever. In this case, your doctor may want to repeat the urine test on another day. This will show if the blood is still present. If so, then other tests can be done to find out the cause. Home Care: If your urine does not appear bloody (pink, brown or red) then you do not need to restrict your activity in any way. If you can see blood in your urine, rest and avoid heavy exertion until your next exam. Do not use aspirin or anti-inflammatory medicine like ibuprofen (Motrin, Advil) or naproxen (Naprosyn, Aleve). These thin the blood and may increase bleeding. Follow Up with your doctor or as advised by our staff. If you were injured and had blood in your urine, you should have a repeat urine test in 1-2 days. Contact your doctor or return to this facility for this test. [NOTE: A radiologist will review any X-rays that were taken. We will notify you of any new findings that may affect your care.] Get Prompt Medical Attention if any of the following occur: Bright red blood or blood clots in the urine (if a new symptom) Weakness, dizziness or fainting New groin, abdominal or back pain Fever of 100.4F (38C) or higher, or as directed by your healthcare provider Repeated vomiting Bleeding from nose, gums or easy bruising Osteoarthritis Osteoarthritis (also called Degenerative Joint Disease) is the most common form of arthritis in adults over 50. It is not the same as Rheumatoid Arthritis. The exact cause is not known but may be related to excess wear and tear on the joint over a long period of time. Prior injury to that joint, or repeated stress on a joint can also cause this type of arthritis. Osteoarthritis most often affects the hands, knees, spine and hips (in that order). The most common symptoms are joint stiffness, pain and swelling. Home Care: When a joint is more sore than usual, rest that joint for a day or two. Heat is very helpful. This can be provided by taking hot baths, applying a heating pad for up to 30 minutes at a time. Because symptoms are usually worse in the morning, many patients like to take a hot bath just after awakening to relax the muscle and soothe the joints. Exercise is the most important part of home treatment for osteoarthritis. This prevents the muscles and ligaments around the joint from becoming weak and helps maintain the full range of joint motion. This limits further damage to the joint. If you are overweight, this puts a lot of extra strain on weight-bearing joints of the lower back, hips, knees, feet and ankles. Losing weight will improve your arthritis symptoms in these joints. Talk to your doctor about a safe and effective weight loss program for yourself. Anti-inflammatory medicine such as ibuprofen (Advil, Motrin) or naproxen (Aleve) is often used to treat this condition. If this alone is not helping, your doctor may prescribe a stronger medicine. If narcotic pain medicines have been prescribed, they should be used in addition to anti-inflammatory drugs and only for severe pain. Follow Up with your doctor as advised by our staff. Get Prompt Medical Attention if any of the following occur: Redness or swelling of a painful joint Fever of 100.4F (38C) or higher, or as directed by your healthcare provider Worsening joint pain Tramadol Hydrochloride Oral tablet What is this medicine? TRAMADOL (TRA ma dole) is a pain reliever. It is used to treat moderate to severe pain in adults. How should I use this medicine? Take this medicine by mouth with a full glass of water. Follow the directions on the prescription label. If the medicine upsets your stomach, take it with food or milk. Do not take more medicine than you are told to take. Talk to your transformation manager regarding the use of this medicine in children. Special care may be needed. What side effects may I notice from receiving this medicine? Side effects that you should report to your doctor or health memory care program resident as soon as possible: allergic reactions like skin rash, itching or hives, swelling of the face, lips, or tongue breathing difficulties, wheezing confusion itching light headedness or fainting spells redness, blistering, peeling or loosening of the skin, including inside the mouth seizures Side effects that usually do not require medical attention (report to your doctor or health memory care program resident if they continue or are bothersome): constipation dizziness drowsiness headache nausea, vomiting What may interact with this medicine? Do not take this medicine with any of the following medications: MAOIs like Carbex, Eldepryl, Marplan, Nardil, and Parnate This medicine may also interact with the following medications: alcohol or medicines that contain alcohol antihistamines benzodiazepines bupropion carbamazepine or oxcarbazepine clozapine cyclobenzaprine digoxin furazolidone linezolid medicines for depression, anxiety, or psychotic disturbances medicines for migraine headache like almotriptan, eletriptan, frovatriptan, naratriptan, rizatriptan, sumatriptan, zolmitriptan medicines for pain like pentazocine, buprenorphine, butorphanol, meperidine, nalbuphine, and propoxyphene medicines for sleep muscle relaxants naltrexone phenobarbital phenothiazines like perphenazine, thioridazine, chlorpromazine, mesoridazine, fluphenazine, prochlorperazine, promazine, and trifluoperazine procarbazine warfarin What if I miss a dose? If you miss a dose, take it as soon as you can. If it is almost time for your next dose, take only that dose. Do not take double or extra doses. Where should I keep my medicine? Keep out of the reach of children. Store at room temperature between 15 and 30 degrees C (59 and 86 degrees F). Keep container tightly closed. Throw away any unused medicine after the expiration date. What should I tell my health care provider before I take this medicine? They need to know if you have any of these conditions: brain tumor depression drug abuse or addiction head injury if you frequently drink alcohol containing drinks kidney disease or trouble passing urine liver disease lung disease, asthma, or breathing problems seizures or epilepsy suicidal thoughts, plans, or attempt; a previous suicide attempt by you or a family member an unusual or allergic reaction to tramadol, codeine, other medicines, foods, dyes, or preservatives or trying to get breast-feeding What should I watch for while using this medicine? Tell your doctor or health memory care program resident if your pain does not go away, if it gets worse, or if you have new or a different type of pain. You may develop tolerance to the medicine. Tolerance means that you will need a higher dose of the medicine for pain relief. Tolerance is normal and is expected if you take this medicine for a long time. Do not suddenly stop taking your medicine because you may develop a severe reaction. Your body becomes used to the medicine. This does NOT mean you are addicted. Addiction is a behavior related to getting and using a drug for a non-medical reason. If you have pain, you have a medical reason to take pain medicine. Your doctor will tell you how much medicine to take. If your doctor wants you to stop the medicine, the dose will be slowly lowered over time to avoid any side effects. You may get drowsy or dizzy. Do not drive, use machinery, or do anything that needs mental alertness until you know how this medicine affects you. Do not stand or sit up quickly, especially if you are an older patient. This reduces the risk of dizzy or fainting spells. Alcohol can increase or decrease the effects of this medicine. Avoid alcoholic drinks. You may have constipation. Try to have a bowel movement at least every 2 to 3 days. If you do not have a bowel movement for 3 days, call your doctor or health memory care program resident. Your mouth may get dry. Chewing sugarless gum or sucking hard candy, and drinking plenty of water may help. Contact your doctor if the problem does not go away or is severe. You have been given the following additional information: COPD Flare Hematuria Osteoarthritis Tramadol Hydrochloride Oral tablet No driving or operating machinery while taking medication. (Electronically signed by Froilan Galvin MD 01/10/2017 4:17)
--- NOTE | 2017-01-10 04:18 | ED MED RECONCILIATION SUMMARY ---
Patient: TIERRA PEOPLES Medication Reconciliation Report [facility] VisitID: [id number] [address] [place] [address] 71y, M Registration Date/Time: 01/02/2017 Weight: 97.5 kg Height/Length: 74 in. BMI: 27.6 ALLERGIES: No Known Drug Allergy The patient's Home Medications are listed below: THE FOLLOWING MEDICATIONS NEED TO BE RECONCILED: PROzac Oral The source(s) of the original Home Medication information: Not obtained. The following Medications were given to the patient in the Emergency Department: Duoneb [Neb Tx] Neb TX 1 unit dose, administered: 01/03/2017 12:33:00 AM SOLU-MEDROL [IVP] IVP 125 mg, administered: 01/03/2017 12:50:00 AM The following Medications were prescribed to the patient: Ultram 50 mg: take 1-2 orally every 6 hours as needed for pain. Dispense ten (10). No refills. Substitution is permissible. -- Froilan Galvin MD
== END 2017-01-03 02:20 | disposition home or self-care (01) ==
LOC: ED SRH 22:51
DX: R31.9 Hematuria, unspecified (principal); J44.1 Chronic obstructive pulmonary disease with (acute) exacerbation; R09.02 Hypoxemia; C95.90 Leukemia, unspecified not having achieved remission; M25.511 Pain in right shoulder; G89.29 Other chronic pain
CPT/HCPCS: 90004; 90100; 90616; 91320; 91556; 91643; 92235; 92530; 92610; 94001; 94060; 95059